=== PATIENT | female | born 1985 | race Caucasian/White ===

== ENCOUNTER 2018-09-17 03:12 | Emergency (ER) | payer MEDICAID ==
[~2018-09-17] VITALS: Ht 154.9 cm; Wt 60.4 kg
[2018-09-17 03:19] VITALS: Ht 154.9 cm; Wt 60.4 kg
[2018-09-17 08:38] VITALS: BP 106/62
== END 2018-09-17 08:38 | disposition home or self-care (01) ==
LOC: ED 03:12
DX: S16.1XXA Strain of muscle, fascia and tendon at neck level, initial encounter (principal); S29.012A Strain of muscle and tendon of back wall of thorax, initial encounter; R07.89 Other chest pain; Z88.6 Allergy status to analgesic agent; V48.6XXA Car passenger injured in noncollision transport accident in traffic accident, initial encounter; Y93.89 Activity, other specified; Y92.411 Interstate highway as the place of occurrence of the external cause; Y99.8 Other external cause status
CPT/HCPCS: 72072; J3010